=== PATIENT | female | born 1995 | race Caucasian/White ===

== ENCOUNTER 2016-10-09 14:30 | Inpatient (IN) | payer OTHER ==
[2016-10-09] MEDS ORDERED: DINOPROSTONE 10 MG VAGINAL SUPPOSITORY VG ONE (15:30)
[2016-10-09 15:54] VITALS: BMI 32.5
[2016-10-09 16:04] LABS: MCH 28.7 pg (25.7-33.7); MCHC 33.6 g/dl (32.0-36.0); MEAN CELL VOLUME 85.6 fl (80-96); MEAN PLT VOLUME 7.9 fl (7.5-11.1); PLATELET COUNT 259 K/MM3 (134-434); RDW 15.3 % (11.6-15.6); WHITE BLOOD COUNT 11.5 K/mm3 (4.0-10.0)
[2016-10-09 16:29] LABS: CALCIUM 9.1 mg/dL (8.5-10.1); COCKROFT - GAULT 174.335; CREATININE 0.6 mg/dL (0.55-1.02)
[2016-10-09 16:33] LABS: INR 0.98 (0.82-1.09); PROTHROMBIN TIME (PATIENT) 10.8 SEC (9.98-11.88)
--- NOTE | 2016-10-09 17:30 | HP ---
Past Medical History - Primary Care Physician PCP:: Yamil Anthony - Admission Chief Complaint: 40 weeks, for cervidil induction History of Present Illness: 21 yo f g 3 p0020, edc by date and sono 10/09/16 40 weeks, requesting induction because of discomfort, risks discussed , cx 1 cm 25 vx -2 mi, fhr cat 1, occasional irregular contraction History Source: Patient, Family Member, Significant Other Limitations to Obtaining History: Language Barrier - Past Medical History ...: 3 ...Para: 0 ...Spon : 1 ...Induced : 1 ...LMP: 01/03/16 ... Weeks Gestation by Dates: 40 ...EDC by Dates: 10/09/16 ...EDC by Sono: 10/09/16 - Past Surgical History Hx Myomectomy: No Hx Transabdominal Cerclage: No Additional Surgical History: right salpingectomy for RT tubal ectopic - Smoking History Smoking history: Never smoked Have you smoked in the past 12 months: No - Alcohol/Substance Use Hx Alcohol Use: No - Social History Usual Living Arrangement: Yes: With Spouse History of Recent Travel: No Home Medications - Allergies Allergies/Adverse Reactions: Allergies Allergy/AdvReac Type Severity Reaction Status Date / Time No Known Allergies Allergy Verified 02/26/16 11:52 - Home Medications Home Medications: Ambulatory Orders Pnv95/Ferrous Fumarate/FA [ Formula] 1 each PO DAILY 02/13/16 Ferrous Sulfate [Feosol] 325 mg PO DAILY 09/20/16 Review of Systems - Review of Systems Constitutional: reports: Malaise, Weakness Eyes: reports: No Symptoms HENT: reports: No Symptoms Neck: reports: No Symptoms Cardiovascular: reports: No Symptoms Respiratory: reports: No Symptoms Gastrointestinal: reports: Abdominal Pain Genitourinary: reports: Frequency Breasts: reports: No Symptoms Reported Musculoskeletal: reports: Back Pain, Joint Pain, Joint Swelling, Muscle Cramps, Muscle Weakness Integumentary: reports: No Symptoms Neurological: reports: No Symptoms Endocrine: reports: No Symptoms Hematology/Lymphatic: reports: No Symptoms Psychiatric: reports: No Symptoms Physical Exam - Maternity Vital Signs: Vital Signs Temperature 98 F 10/09/16 16:20 Pulse Rate 79 10/09/16 17:00 Respiratory Rate 20 10/09/16 17:00 Blood Pressure 142/70 10/09/16 17:00 O2 Sat by Pulse Oximetry (%) Constitutional: Yes: Well Nourished, No Distress, Calm Eyes: Yes: WNL, Conjunctiva Clear, EOM Intact HENT: Yes: WNL, Atraumatic, Normocephalic Neck: Yes: WNL, Supple, Trachea Midline Cardiovascular: Yes: WNL, Regular Rate and Rhythm Breast(s): Yes: WNL - Abdominal Exam/OB Fundal Height: 40 Number of Fetuses: Single Presentation: Vertex Contractions: Yes Regularity: Irregular Intensity: Unaware Monitor Mode: External Heart Rate Location: [facility] Category: I Accelerations: Uniform Decelerations: None - Vaginal Exam/OB Vaginal Bleediing: No Speculum Exam: No Dilatation (cm): 1 cm Effacement (%): 25 Amniotic Membrane Status: Intact Presentation: Vertex/Position Station: -2 - Physical Exam Musculoskeletal: Yes: WNL Extremities: Yes: WNL Edema: LLE: 1+, RLE: 1+ Deep Tendon Reflex Grade: Normal +2 - Labs Lab Results: CBC, BMP 10/09/16 15:40 10/09/16 15:40 Hemorrhage Risk Assessment - Risk Factors Medium Risk Factors: Yes: None Risk Score: 1 Risk Level: Medium Risk Problem List - Problems (1) 40 weeks gestation of Code(s): Z3A.40 - 40 WEEKS GESTATION OF Assessment/Plan requesting induction of labor for maternal reason, risks discussed. aware of all risks, for cervidil induction
--- NOTE | 2016-10-09 18:24 | PN ---
Progress Note (short form) - Note Progress Note: 510 pm cervidil inserted , , fhr cat 1 Problem List - Problems (1) 40 weeks gestation of Code(s): Z3A.40 - 40 WEEKS GESTATION OF
[2016-10-09 19:08] LABS: PLATELET ESTIMATE ADEQUATE (NORMAL)
[2016-10-09] MEDS ORDERED: BUTORPHANOL TARTRATE 1 MG/ML VIAL IVPUSH ONE (23:06)
[2016-10-09] MEDS ORDERED: DEXTROSE 5%-LACTATED RINGERS 1,000 ML IV SCH (23:15)
[2016-10-10 05:51] LABS: URIC ACID 2.8 mg/dL (2.6-7.2)
[2016-10-10] MEDS ORDERED: DEXTROSE 5%-LACTATED RINGERS 1,000 ML IV ONE (06:00)
[2016-10-10] MEDS ORDERED: BUTORPHANOL TARTRATE 1 MG/ML VIAL IVPUSH ONE (08:41)
--- NOTE | 2016-10-10 08:41 | PN ---
Progress Note (short form) - Note Progress Note: 730 am cx 2 cm 75 vx -2 mi , fhr cat 1, contravtion irregular , will start pitocin Problem List - Problems (1) 40 weeks gestation of Code(s): Z3A.40 - 40 WEEKS GESTATION OF
[2016-10-10] MEDS ORDERED: OXYTOCIN 15 UNITS/ LR 250 ML 250 ML IVPB SCH (08:45)
[2016-10-10] MEDS ORDERED: FERROUS SO4 325 MG TABLET (FP) PO SCH (10:00)
[2016-10-10] MEDS ORDERED: BUTORPHANOL TARTRATE 1 MG/ML VIAL IVPB ONE (12:20)
--- NOTE | 2016-10-10 14:20 | PN ---
Progress Note (short form) - Note Progress Note: cx 6 cm, 80 vx -1 membrane bulging, fhr cat 1, arom, clear . contraction regular Problem List - Problems (1) 40 weeks gestation of Code(s): Z3A.40 - 40 WEEKS GESTATION OF
[2016-10-10] MEDS ORDERED: ELECTROLYTE-148 SOLN 1,000 ML IV SCH (15:00)
[2016-10-10] MEDS ORDERED: FENTANYL/BUPIVACAINE/NS/PF - PCEA - 50 ML DISP.SYRIN EP SCH (18:30)
[2016-10-10 18:40] LABS: ARTERIAL BLD GAS O2 SATURATION 47.6 % (90-98.9); ARTERIAL BLOOD GAS BASE EXCESS -2.3 meq/l (-2-2); ARTERIAL BLOOD GAS HCO3 22.8 meq/L (22-26); ARTERIAL BLOOD GAS pH 7.35 (7.35-7.45)
[2016-10-10 18:43] LABS: LPM/O2% 21%; PT. ON O2? no
[2016-10-10 18:45] LABS: VENOUS BLOOD GAS HCO3 21.5 meq/L (19-25); VENOUS PH 7.39 (7.32-7.42)
[2016-10-10] MEDS ORDERED: BISACODYL 10 MG SUPP.RECT RC PRN (18:48)
[2016-10-10] MEDS ORDERED: BENZOCAINE 20% 57 GM BOTTLE TP PRN (18:48)
[2016-10-10] MEDS ORDERED: WITCH HAZEL 50% (TUCKS) 40 PAD/JAR PAD TP PRN (18:48)
[2016-10-10] MEDS ORDERED: METHYLERGONOVINE MALEATE 0.2 MG/1 ML AMP IM PRN (18:48)
[2016-10-10] MEDS ORDERED: BENZOCAINE 28 GM HEMORRHOIDAL OINTMENT TP PRN (18:48)
[2016-10-10] MEDS ORDERED: oxyCODONE HCL 5 MG TABLET PO PRN (18:48)
[2016-10-10] MEDS ORDERED: D5W-LR W/ 20 UNITS OXYTOCIN 1,000 ML IV SCH (19:00)
[2016-10-10] MEDS: PRENATAL VITAMINS W/ FOLIC ACID TABLET (FP) PO SCH (21:11)
[2016-10-10] MEDS: FERROUS SO4 325 MG TABLET (FP) PO SCH (22:19)
[2016-10-11] MEDS: ACETAMINOPHEN 325 MG TABLET (FP) PO PRN ×3 (04:53→21:34)
[2016-10-11] MEDS: IBUPROFEN 600 MG TABLET (FP) PO PRN ×3 (04:54→21:37)
[2016-10-11 07:57] LABS: BASOPHIL 0.1 % (0-2.0); EOSINOPHIL 0.6 % (0-4.5); MCH 28.7 pg (25.7-33.7); MCHC 33.3 g/dl (32.0-36.0); MEAN CELL VOLUME 86.4 fl (80-96); MEAN PLT VOLUME 7.4 fl (7.5-11.1); NEUTROPHILS 80.9 % (42.8-82.8); PLATELET COUNT 218 K/MM3 (134-434); RDW 15.3 % (11.6-15.6); WHITE BLOOD COUNT 19.2 K/mm3 (4.0-10.0)
[2016-10-11] MEDS: FERROUS SO4 325 MG TABLET (FP) PO SCH ×2 (09:27→21:33)
[2016-10-11] MEDS: PRENATAL VITAMINS W/ FOLIC ACID TABLET (FP) PO SCH (09:27)
[2016-10-11] MEDS ORDERED: PRENATAL VITAMINS W/ FOLIC ACID TABLET (FP) PO SCH (10:00)
--- NOTE | 2016-10-11 10:20 | PN ---
Progress Note (short form) - Note Progress Note: ppd 1 doing well, ambulating, voids ok CBC, BMP 10/11/16 06:00 10/09/16 15:40 Last Vital Signs Temp Pulse Resp BP Pulse Ox 98.4 F 80 20 124/59 100 10/11/16 07:30 10/11/16 07:30 10/11/16 07:30 10/11/16 07:30 10/10/16 19:15 abdomen soft, non tender, uterus firm, lochia mild no calf tenderness plan ambulate observr Problem List - Problems (1) 40 weeks gestation of Code(s): Z3A.40 - 40 WEEKS GESTATION OF
[2016-10-11] MEDS ORDERED: SENNOSIDES/DOCUSATE COMBO (SENNA PLUS) TABLET (UD) PO PRN (22:00)
[2016-10-12] MEDS: PRENATAL VITAMINS W/ FOLIC ACID TABLET (FP) PO SCH (09:25)
[2016-10-12] MEDS: FERROUS SO4 325 MG TABLET (FP) PO SCH (09:25)
[2016-10-12] MEDS: ACETAMINOPHEN 325 MG TABLET (FP) PO PRN (09:31)
[2016-10-12] MEDS: IBUPROFEN 600 MG TABLET (FP) PO PRN (09:31)
[2016-10-12 10:36] VITALS: BP 135/65; PULSE 81; TEMP 97.7
--- NOTE | 2016-10-12 11:18 | DS ---
Physical Exam-RN LIAISON Vital Signs: Vital Signs Temperature 97.7 F 10/12/16 10:00 Pulse Rate 81 10/12/16 10:00 Respiratory Rate 18 10/12/16 10:00 Blood Pressure 135/65 10/12/16 10:00 O2 Sat by Pulse Oximetry (%) 100 10/10/16 19:15 Constitutional: Yes: Well Nourished, No Distress, Calm Eyes: Yes: WNL, Conjunctiva Clear, EOM Intact HENT: Yes: WNL, Atraumatic, Normocephalic Neck: Yes: WNL, Supple, Trachea Midline Cardiovascular: Yes: WNL, Regular Rate and Rhythm Respiratory: Yes: WNL, Regular, CTA Bilaterally Gastrointestinal: Yes: WNL ...Rectal Exam: Yes: WNL Renal/: Yes: WNL ....Post : Yes: Uterus firm, Uterus non-tender, Slight lochia rubra Breast(s): Yes: WNL Musculoskeletal: Yes: WNL Extremities: Yes: WNL Edema: LLE: Trace, RLE: Trace Integumentary: Yes: WNL Neurological: Yes: WNL, Alert, Oriented ...Motor Strength: WNL Psychiatric: Yes: WNL, Alert, Oriented Labs: CBC, BMP 10/11/16 06:00 10/09/16 15:40 Delivery - Delivery Vaginal Delivery: Spontaneous (no complication) Type of Anesthesia: Local, Epidural Episiotomy/Laceration: Perineal Extension/lac, 1st degree EBL (cc): 300 Delivery, Single - Stages of Labor Date 1st Stage Initiatied: 10/10/16 Time 1st Stage Initiated: 06:00 Date 2nd Stage Initiated: 10/10/16 Time 2nd Stage Initiated: 17:45 Date of Delivery: 10/10/16 Time of Delivery: 17:58 Time Placenta Delivered: 18:00 Placenta: Yes: Spontaneous - Condition of Infant 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/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 Present: No Infant Gender: Female Weight: 6 lb 8 oz Position: OA Total Hours ROM (Hrs/Mins): 3H55M - 1 Minute Total Score: 9 5 Minutes Total Score: 10 - Feeding Plan Initial Plan: Exclusive throughout hospitalization Discharge Summary Reason For Visit: CERVIDIL INDUCTION Current Active Problems 40 weeks gestation of (Acute) Procedures: Principal: Condition: Good - Instructions Diet, Activity, Other Instructions: regular diet, follow up [facility] care 4 weeks Referrals: [facility] (Jaylyn Lofton) [Outside] Disposition: HOME - Home Medications Comprehensive Discharge Medication List: Ambulatory Orders Pnv95/Ferrous Fumarate/FA [ Formula] 1 each PO DAILY 02/13/16 Ferrous Sulfate [Feosol] 325 mg PO DAILY 09/20/16 Ibuprofen [Motrin -] 600 mg PO QID #28 tablet 10/11/16
== END 2016-10-12 11:30 | disposition home or self-care (01) | DRG 560 ==
LOC: JLDR 14:30 → J3W 10-10 20:35
PROVIDERS: ADMIT Obstetrics & Gynecology; ATTEND Obstetrics & Gynecology
PROC: 3E0P7GC Introduction of Other Therapeutic Substance into Female Reproductive, Via Natural or Artificial Opening (ICD-10-PCS; 2016-10-09)
PROC: 10E0XZZ Delivery of Products of Conception, External Approach (ICD-10-PCS; principal; 2016-10-10)
PROC: 0HQ9XZZ Repair Perineum Skin, External Approach (ICD-10-PCS; 2016-10-10)
PROC: 0W8NXZZ Division of Female Perineum, External Approach (ICD-10-PCS; 2016-10-10)
DX: O70.0 First degree perineal laceration during delivery (principal); Z3A.40 40 weeks gestation of pregnancy; Z37.0 Single live birth
CPT/HCPCS: 36415; 36600; 59409; 80048; 82803; 82977; 83010; 84450; 84460; 84550; 85025; 85044; 85610; 85730; 86593; 86850; 86900; 86901

== ENCOUNTER 2016-10-17 21:17 | Emergency (ER) | payer OTHER ==
[2016-10-17 21:26] VITALS: BP 149/71; PULSE 71; TEMP 98.9; BMI 28.3
[2016-10-17] MEDS ORDERED: SODIUM CHLORIDE 1,000 ML IV STA (22:15)
--- NOTE | 2016-10-17 22:15 | PDOC ---
History of Present Illness - General Chief Complaint: Vaginal Sxs Stated Complaint: INFECTED WOUND Time Seen by Provider: 10/17/16 21:34 History Source: Patient Exam Limitations: No Limitations - History of Present Illness Travel History: No Initial Comments: 10/17/16 22:30 21-year-old female without any past medical history presents to the emergency department complaining of bleeding from her right labia. Patient had normal spontaneous vaginal delivery times one week ago and caused a laceration to her right labia. Patient reports she had it repaired while in the delivery room with some sutures. Patient states after moving heavy furniture yesterday, she felt some pain to the right labia. Patient noticed some bleeding and swelling this evening but denies difficulty urinating, urinary hesitancy, frequency or urgency, abdominal pains, flank pains, nausea/vomiting, fever/chills. 2201hrs: Spoke to Dr. Nunez/OB-AIRBRUSH ARTIST TECHNICAL fabrication inspector, I advised patient to apply ice packs and be discharged on Augmentin 875 mg twice a day 5 days/follow-up with AIRBRUSH ARTIST TECHNICAL at [address] [place] [address]/clinic on Thursday (in 2 d). Timing/Duration: reports: intermittent Past History - Travel Traveled outside of the country in the last 30 days: No Close contact w/someone who was outside of country & ill: No - Past Medical History Allergies/Adverse Reactions: Allergies Allergy/AdvReac Type Severity Reaction Status Date / Time No Known Allergies Allergy Verified 02/26/16 11:52 Home Medications: Ambulatory Orders Pnv95/Ferrous Fumarate/FA [ Formula] 1 each PO DAILY 02/13/16 Ferrous Sulfate [Feosol] 325 mg PO DAILY 09/20/16 Ibuprofen [Motrin -] 600 mg PO QID #28 tablet 10/11/16 Asthma: No Cancer: No Cardiac Disorders: No Diabetes: No GI Disorders: Yes (gastritis) HTN: No Seizures: No Thyroid Disease: No - Reproductive History (#): 1 Para: 1 Therapeutic (s) & number: No Spontaneous : 2 - Psycho/Social/Smoking Cessation Hx Anxiety: No Suicidal Ideation: No Smoking History: Never smoked Have you smoked in the past 12 months: No Information on smoking cessation initiated: No Hx Alcohol Use: No Drug/Substance Use Hx: No Substance Use Type: None Hx Substance Use Treatment: No Review of Systems - Review of Systems Able to Perform ROS?: Yes Comments:: 10/17/16 22:33 CONSTITUTIONAL: Absent: fever, chills, diaphoresis, generalized weakness, malaise, loss of appetite HEENT: Absent: rhinorrhea, nasal congestion, throat pain, throat swelling, difficulty swallowing, mouth swelling, ear pain, eye pain, visual Changes CARDIOVASCULAR: Absent: chest pain, loss of consciousness, palpitations, irregular heart rate, peripheral edema RESPIRATORY: Absent: cough, shortness of breath, dyspnea with exertion, orthopnea, wheezing, stridor, hemoptysis GASTROINTESTINAL: Absent: abdominal pain, abdominal distension, nausea, vomiting, diarrhea, constipation, melena, hematochezia GENITOURINARY: Absent: dysuria, frequency, urgency, hesitancy, hematuria, flank pain, genital pain MUSCULOSKELETAL: Absent: myalgia, arthralgia, joint swelling SKIN: Absent: rash, itching, pallor HEMATOLOGIC/IMMUNOLOGIC: Absent: easy bleeding, easy bruising, lymphadenopathy, frequent infections ENDOCRINE: Absent: unexplained weight gain, unexplained weight loss, heat intolerance, cold intolerance NEUROLOGIC: Absent: headache, focal weakness or paresthesias, dizziness, unsteady gait, seizure, mental status changes, bladder or bowel incontinence PSYCHIATRIC: Absent: anxiety, depression, suicidal or homicidal ideation, hallucinations. right labia bleeding/pain *Physical Exam - Vital Signs Last Vital Signs Temp Pulse Resp BP Pulse Ox 98.9 F 71 20 149/71 100 10/17/16 21:21 10/17/16 21:21 10/17/16 21:21 10/17/16 21:21 10/17/16 21:21 - Physical Exam Comments: 10/17/16 22:41 GENERAL: Well developed, well nourished. Awake and alert. No acute distress. HEENT: Normocephalic, atraumatic. PERRLA, EOMI. No conjunctival pallor. Sclera are non- icteric. Moist mucous membranes. Oropharynx is clear. NECK: Supple. Full ROM. No JVD. Carotid pulses 2+ and symmetric, without bruits. No thyromegaly. No lymphadenopathy. CARDIOVASCULAR: Regular rate and rhythm. No murmurs, rubs, or gallops. Distal pulses are 2+ and symmetric. PULMONARY: No evidence of respiratory distress. Lungs clear to auscultation bilaterally. No wheezing, rales or rhonchi. ABDOMINAL: Soft. Non-tender. Non-distended. No rebound or guarding. No organomegaly. Normoactive bowel sounds. MUSCULOSKELETAL Normal range of motion at all joints. No bony deformities or tenderness. No CVA tenderness. EXTREMITIES: No cyanosis. No clubbing. No edema. No calf tenderness. SKIN: Warm and dry. Normal capillary refill. No rashes. No jaundice. Pelvic: Right labia; [id number] hematoma with healing 3cm vert lac /upper region/oozing blood +pain onpalp Vaginal vault is clear without blood or discharge. Cervix is long and closed. No cervical motion tenderness. Uterus is nontender and normal in size. Adnexa are nontender and without masses. *DC/Admit/Observation/Transfer Diagnosis at time of Disposition: Hematoma of labia majora Laceration of labia majora Qualifiers: Encounter type: subsequent encounter Qualified Code(s): S31.41XD - Laceration without foreign body of vagina and vulva, subsequent encounter - Discharge Dispostion Disposition: HOME Condition at time of disposition: Stable - Referrals Referrals: Ellie Frost MD [Primary Care Provider] - Sivan Nunez MD [Staff Physician] - - Patient Instructions Printed Discharge Instructions: DI for Hematoma (Bruise) Additional Instructions: Follow up at the clinic on Thursday / [place] I spoke to Dr. Nunez (AIRBRUSH ARTIST TECHNICAL fabrication inspector for our ER tonight); Her advice is happy apply ice pack to your vaginal bruising and follow-up at the clinic on Thursday. Take Tylenol as needed for pain. Return back to the emergency department for increase/persistent or worsening symptoms.
[2016-10-17] MEDS ORDERED: AMPICILLIN NA/SULBACTAM NA 1.5 GM in SODIUM CHLORIDE 100 ML IVPB ONE (22:18)
--- NOTE | 2016-10-17 22:22 | PDOC ---
[id number]/71 100 10/17/16 21:21 10/17/16 21:21 10/17/16 21:21 10/17/16 21:21 10/17/16 21:21 ED Treatment Course - LABORATORY CBC & Chemistry Diagram: 10/17/16 22:35 Medical Decision Making - Medical Decision Making 10/17/16 22:21 Pt seen by the Advanced Practice Provider under my direct supervision Ancillary studies reviewed I agree with plan as outlined by the Advanced Practice Provider ESCOBAR Quick *DC/Admit/Observation/Transfer Diagnosis at time of Disposition: Laceration of labia majora, Hematoma of labia majora - Discharge Dispostion Disposition: HOME Condition at time of disposition: Stable - Prescriptions Prescriptions: Amox-Tr/K Cl [Augmentin - 875Mg Tablet] 1 tab PO BID #14 tablet - Referrals Referrals: Sivan Nunez MD [Staff Physician] - Ellie Frost MD [Primary Care Provider] - - Patient Instructions Printed Discharge Instructions: DI for Hematoma (Bruise) Additional Instructions: Follow up at the clinic on Thursday / [place] I spoke to Dr. Nunez (ANIMAL CAREGIVER supervisor inspection and testing for our ER [facility]); Her advice is happy apply ice pack to your vaginal bruising and follow-up at the clinic on Thursday. Take Tylenol as needed for pain. Return back to the emergency department for increase/persistent or worsening symptoms.
[2016-10-17 22:59] LABS: MCH 28.7 pg (25.7-33.7); MCHC 33.7 g/dl (32.0-36.0); MEAN CELL VOLUME 85.2 fl (80-96); MEAN PLT VOLUME 6.9 fl (7.5-11.1); PLATELET COUNT 425 K/MM3 (134-434); RDW 15.3 % (11.6-15.6); WHITE BLOOD COUNT 11.2 K/mm3 (4.0-10.0)
[2016-10-18 00:09] LABS: PLATELET ESTIMATE ADEQUATE (NORMAL)
== END 2016-10-18 00:09 | disposition home or self-care (01) ==
LOC: JER 21:17
DX: O90.2 Hematoma of obstetric wound (principal); S31.41XD Laceration without foreign body of vagina and vulva, subsequent encounter; X50.9XXA Other and unspecified overexertion or strenuous movements or postures, initial encounter; Y93.E9 Activity, other interior property and clothing maintenance; Y92.038 Other place in apartment as the place of occurrence of the external cause
CPT/HCPCS: 36415; 85025; 96365; 99283-25

== ENCOUNTER 2017-10-15 09:49 | Emergency (ER) | payer OTHER ==
[2017-10-15 09:59] VITALS: BP 121/40; PULSE 73; TEMP 99.1; BMI 29.5
--- NOTE | 2017-10-15 10:55 | PDOC ---
History of Present Illness <Jefe Hatch - Last Filed: 10/15/17 13:06> - General History Source: Patient - History of Present Illness Initial Comments: 10/15/17 10:49 22F A2, 6 weeks , last menstrual period 09/03/17, presents to the ED complaining of suprapubic abdominal pain exacerbated with movement. She also endorses increase in urinary frequency and urgency. Found out she was with urine test at home 2 days ago. Denies dysuria, vaginal bleeding, spotting or discharge. 10/15/17 11:03 <JagChase - Last Filed: 10/15/17 14:25> - General Chief Complaint: Pain, Acute Stated Complaint: ABD PAIN (4 WKS ) Time Seen by Provider: 10/15/17 10:00 Past History <Jefe Hatch - Last Filed: 10/15/17 13:06> - Past Medical History Asthma: No Cancer: No Cardiac Disorders: No COPD: No Diabetes: No GI Disorders: Yes (gastritis) HTN: No Seizures: No Thyroid Disease: No - Reproductive History (#): 1 Para: 1 Therapeutic (s) & number: No Spontaneous : 2 - Immunization History Immunization Up to Date: Yes - Suicide/Smoking/Psychosocial Hx Smoking History: Never smoked Have you smoked in the past 12 months: No Information on smoking cessation initiated: No Hx Alcohol Use: No Drug/Substance Use Hx: No Substance Use Type: None Hx Substance Use Treatment: No <JagChase - Last Filed: 10/15/17 14:25> - Past Medical History Allergies/Adverse Reactions: Allergies Allergy/AdvReac Type Severity Reaction Status Date / Time No Known Allergies Allergy Verified 10/15/17 09:54 Home Medications: Ambulatory Orders Pnv No.95/Ferrous Fum/Folic AC [ Formula] 1 each PO DAILY 02/13/16 Ferrous Sulfate [Feosol] 325 mg PO DAILY 09/20/16 Amox-Tr/K Cl [Augmentin - 875Mg Tablet] 1 tab PO BID #14 tablet 10/17/16 Review of Systems - Review of Systems Able to Perform ROS?: Yes Is the patient limited Uzbek proficient: No Constitutional: No: Symptoms Reported HEENTM: No: Symptoms Reported Respiratory: No: Symptoms reported Cardiac (ROS): No: Symptoms Reported ABD/GI: Yes: See HPI. No: Vomiting, Indigestion : Yes: Frequency, Urgency. No: Burning, Dysuria, Discharge, Hematuria All Other Systems: Reviewed and Negative <Chase Rm - Last Filed: 10/15/17 14:25> *Physical Exam - Vital Signs Last Vital Signs Temp Pulse Resp BP Pulse Ox 99.1 F 73 16 121/40 99 10/15/17 09:55 10/15/17 09:55 10/15/17 09:55 10/15/17 09:55 10/15/17 09:55 <Jefe Hatch - Last Filed: 10/15/17 13:06> - Vital Signs Last Vital Signs Temp Pulse Resp BP Pulse Ox 99.1 F 73 16 121/40 99 10/15/17 09:55 10/15/17 09:55 10/15/17 09:55 10/15/17 09:55 10/15/17 09:55 - Physical Exam General Appearance: Yes: Nourished, Appropriately Dressed, Mild Distress HEENT: positive: EOMI, BERNARDINO, Normal ENT Inspection Respiratory/Chest: positive: Lungs Clear, Normal Breath Sounds. negative: Chest Tender, Respiratory Distress Cardiovascular: positive: Regular Rhythm, Regular Rate, S1, S2 Female Pelvic Exam: positive: normal external exam, cervical os closed, discharge (physiological leukorrhea ). negative: CMT, adnexal tenderness, vaginal bleeding Gastrointestinal/Abdominal: positive: Normal Bowel Sounds, Tender (epigastric pain with guarding but some tenderness as well on LLQ and LRQ), Flat, Soft, Guarding Musculoskeletal: positive: Normal Inspection. negative: CVA Tenderness, CVA Tenderness (R), CVA Tenderness (L) Integumentary: positive: Normal Color, Dry, Warm Neurologic: positive: Fully Oriented, Alert, Normal Mood/Affect, Normal Response <Chase Rm - Last Filed: 10/15/17 14:25> Heart Score/ECG Review - ECG Impressions Comment:: 10/15/17 13:06 22 years old approximately 6 weeks presents to the ED with suprapubic abdominal discomfort. Patient states she had similar pain during her last No fever no vomiting Gestational sac which correlates with hCG patient still with some suprapubic discomfort We'll discussed with PRODUCTION CORRUGATOR given no fever no white count no right lower quadrant pain lower suspicion for appendicitis <Jefe Hatch - Last Filed: 10/15/17 13:06> ED Treatment Course - LABORATORY CBC & Chemistry Diagram: 10/15/17 11:11 10/15/17 11:11 - ADDITIONAL ORDERS Additional order review: Laboratory Results 10/15/17 10/15/17 10/15/17 11:11 11:11 11:11 Sodium 140 Cancelled Potassium 3.8 Cancelled Chloride 110 H Cancelled Carbon Dioxide 24 Cancelled Anion Gap 6 L Cancelled BUN 9 Cancelled Creatinine 0.5 L Cancelled Creat Clearance w eGFR > 60 Cancelled Random Glucose 85 Cancelled Calcium 8.4 L Cancelled Total Bilirubin 0.1 L D Cancelled AST 21 Cancelled ALT 47 Cancelled Alkaline Phosphatase 69 Cancelled Total Protein 7.2 Cancelled Albumin 3.6 Cancelled Beta HCG, Quant 2874.5 Urine Color Urine Appearance Urine pH Ur Specific Parker Urine Protein Urine Glucose (UA) Urine Ketones Urine Blood Urine Nitrite Urine Bilirubin Urine Urobilinogen Ur Leukocyte Esterase Urine WBC (Auto) Urine RBC (Auto) Ur Epithelial Cells Urine Mucus Urine HCG, Qual Positive 10/15/17 11:11 Sodium Potassium Chloride Carbon Dioxide Anion Gap BUN Creatinine Creat Clearance w eGFR Random Glucose Calcium Total Bilirubin AST ALT Alkaline Phosphatase Total Protein Albumin Beta HCG, Quant Urine Color Straw Urine Appearance Clear Urine pH 7.0 Ur Specific Parker 1.005 Urine Protein Negative Urine Glucose (UA) Negative Urine Ketones Negative Urine Blood Negative Urine Nitrite Negative Urine Bilirubin Negative Urine Urobilinogen Negative Ur Leukocyte Esterase Trace Urine WBC (Auto) <1 Urine RBC (Auto) <1 Ur Epithelial Cells Rare Urine Mucus Rare Urine HCG, Qual 10/15/17 11:11 RBC 5.08 D MCV 70.3 L MCHC 32.7 RDW 18.8 H D MPV 7.0 L Neutrophils % 65.8 Lymphocytes % 25.4 Monocytes % 6.3 Eosinophils % 2.0 Basophils % 0.5 D <Jefe Hatch - Last Filed: 10/15/17 13:06> - LABORATORY CBC & Chemistry Diagram: 10/15/17 11:11 10/15/17 11:11 - RADIOLOGY Radiology Studies Ordered: Category Date Time Status <14WKS US [US] Stat Ultrasound 10/15/17 10:36 Ordered <Chase Rm - Last Filed: 10/15/17 14:25> Medical Decision Making - Medical Decision Making 10/15/17 11:16 22F, 6 week presents with suprapubic abdominal pain, urgency and frequency for one week, worst the past 2 days, UTI vs PID vs ovarian abcess vs ectopic UTI likely due to presentation even though no dysuria reported, Pain is concentrated midline but patient is tender bilaterally as well which makes ovarian torsion, abscess or ectopic less likely. Will confirm intrauterine with TVUS and betahcg. Low grade fever also makes infectious etiology more likely. Will look for wbc count in CBC as well as UA and U culture and treat accordingly. Spoke to Dr. Anthony on the phone who recommended patient follows up at clinic this week with Tylenol for pain. 10/15/17 14:20 Reassessed patient who refused Tylenol IV and endorses feeling much better, asking to be discharged to picking belt operator daughter. Repeated abdominal exam with was positive for only mild suprapubic pain. Patient told to set up appointment with OBGYN Dr. Anthony as soon as discharged for this week and take tylenol for pain. <Chase Rm - Last Filed: 10/15/17 14:25> *DC/Admit/Observation/Transfer <Jefe Hatch - Last Filed: 10/15/17 13:06> - Discharge Dispostion Admit: No <Chase Rm - Last Filed: 10/15/17 14:25> Diagnosis at time of Disposition: Abdominal pain - Discharge Dispostion Disposition: HOME Condition at time of disposition: Improved - Referrals Referrals: Yamil Anthony MD [Primary Care Provider] - - Patient Instructions Printed Discharge Instructions: DI for Abdominal Pain -- Early Additional Instructions: Take Tylenol for pain and set appointment with your OBGYN Dr. Anthony within 2- 3 days. Come back to the ED for any new, worsening or concerning symptom. Print Language: GIBRALTARIAN - Post Discharge Activity
[2017-10-15 11:19] LABS: BASO % 0.5 % (0-2.0); HEMATOCRIT 35.7 % (32.4-45.2); HEMOGLOBIN 11.7 GM/dL (10.7-15.3); LYMPH % 25.4 % (8-40); MCHC 32.7 g/dl (32.0-36.0); MEAN CELL VOLUME 70.3 fl (80-96); MONO % 6.3 % (3.8-10.2); NEUT % 65.8 % (42.8-82.8); PLATELET COUNT 393 K/MM3 (134-434); RBC 5.08 M/mm3 (3.60-5.2); RDW 18.8 % (11.6-15.6); WHITE BLOOD COUNT 10.2 K/mm3 (4.0-10.0)
[2017-10-15 11:22] LABS: URINE APPEARANCE CLEAR; URINE BILIRUBIN NEGATIVE (<2.0 mg/dL); URINE BLOOD NEGATIVE (NEGATIVE); URINE COLOR STRAW; URINE GLUCOSE (UA) NEGATIVE (NEGATIVE); URINE KETONE NEGATIVE (NEGATIVE); URINE LEUK ESTERASE TRACE (NEGATIVE); URINE NITRITE NEGATIVE (NEGATIVE); URINE PROTEIN NEGATIVE (NEGATIVE); URINE UROBILINOGEN NEGATIVE mg/dL (0.2-1.0)
[2017-10-15 11:31] LABS: EPI CELLS RARE /HPF (FEW); URINE MUCUS RARE
[2017-10-15 11:50] LABS: ALBUMIN 3.6 g/dl (3.4-5.0); ANION GAP 6 (8-16); BILIRUBIN,TOTAL 0.1 mg/dL (0.2-1.0); BLOOD UREA NITROGEN 9 mg/dL (7-18); CALCIUM 8.4 mg/dL (8.5-10.1); CHLORIDE 110 mmol/L (98-107); CO2 24 mmol/L (21-32); CREATININE 0.5 mg/dL (0.55-1.02); GLUCOSE,RANDOM 85 mg/dL (74-106); POTASSIUM 3.8 mmol/L (3.5-5.1); SGOT/AST 21 U/L (15-37); SGPT/ALT 47 U/L (12-78); SODIUM 140 mmol/L (136-145); TOT PROT 7.2 g/dl (6.4-8.2)
[2017-10-15 12:05] LABS: ALK PHOS 69 U/L (45-117)
[2017-10-15] MEDS ORDERED: ACETAMINOPHEN 1000 MG/100 ML VIAL (NON FORMULARY) IVPB ONE (13:23)
[2017-10-15] MEDS ORDERED: ACETAMINOPHEN INJECTION 100 ML IVPB ONE (13:48)
--- NOTE | 2017-10-15 14:07 | PDOC ---
Attending Attestation - HPI HPI: 10/15/17 14:09 The patient is a 6 weeks 22 year old female , with no significant PMH, who presents to the emergency department with suprapubic pain. The patient states the suprapubic pain is worsened with movement. The patient reports she learned she was 2 days ago via urine test at home. She denies any recent vaginal bleeding, spotting or discharge. Patient reports her LMP was . The patient denies chest pain, shortness of breath, headache and dizziness. Denies fever, chills, nausea, vomit, diarrhea and constipation. Denies dysuria, frequency, urgency and hematuria. Allergies: NKA Documentation prepared by Dylan Cueva, acting as medical translator for Jefe Hatch MD - Physicial Exam PE: 10/15/17 14:10 Vitals: Triage vital signs reviewed General Appearance: No acute distress, well nourished, well developed Head: Atraumatic Eyes: Pupils equal reactive round, extraocular movement intact Ears: TM's normal bilaterally Nose: Nares patent bilaterally; no nasal congestion Throat: Posterior oropharynx without erythema, mucous membranes moist Neck: Supple; No nuchal rigidity Chest Wall: Nontender Cardiac: Regular rate and rhythm, no murmurs, no rubs, no gallops Lungs: Clear to auscultation bilateral, good air movement bilaterally Abdomen: +Surapubic tenderness on palpation. Soft, nondistended, normal bowel sounds. Rectal: Exam deferred Extremities: Full range of motion to all extremities, no cyanosis, clubbing, or edema Skin: Warm and dry, no rashes or lesions, no rash, no petechiae Neuro: AOX3; Cranial Nerves 2-12 grossly intact, Strength intact to all extremities, Sensation intact to all extremities, gait normal Psych: Normal mood, normal affect - Medical Decision Making 10/15/17 14:10 The patient is a 6 weeks 22 year old female , with no significant PMH, who presents to the emergency department with suprapubic pain. Plan: Labs, ultrasound <Dylan Cueva - Last Filed: 10/15/17 14:09> - Resident Resident Name: Chase Rm - ED Attending Attestation I have performed the following: I have examined & evaluated the patient, The case was reviewed & discussed with the resident, I agree w/resident's findings & plan, Exceptions are as noted - Medical Decision Making Reevaluation after IV fluids and Tylenol patient no longer with any significant abdominal discomfort. No rebound no guarding no right lower quadrant pain. 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 She'll return to ED for any fever vomiting severe persistent returning abdominal pain or bleeding. Otherwise she will follow-up with her [employer] OF HEARING TEACHER tomorrow Findings, the need for follow-up and strict return instructions discussed with patient. <Jefe Hatch - Last Filed: 10/15/17 16:32>
== END 2017-10-15 14:45 | disposition home or self-care (01) ==
LOC: JER 09:49
PROC: 3E033NZ Introduction of Analgesics, Hypnotics, Sedatives into Peripheral Vein, Percutaneous Approach (ICD-10-PCS; principal; 2017-10-15)
DX: O26.891 Other specified pregnancy related conditions, first trimester (principal); R10.30 Lower abdominal pain, unspecified; Z3A.01 Less than 8 weeks gestation of pregnancy
CPT/HCPCS: 36415; 76801-TC; 80053; 81003; 81015; 84702; 84703; 85025; 87086; 99282-25

== ENCOUNTER 2018-06-21 11:35 | Inpatient (IN) | payer OTHER ==
[2018-06-21] MEDS ORDERED: ELECTROLYTE-148 SOLN 1,000 ML IV SCH (13:30)
[2018-06-21 13:41] LABS: BASO % 0.2 % (0-2.0); EOS % 0.4 % (0-4.5); HEMATOCRIT 42.1 % (32.4-45.2); HEMOGLOBIN 13.5 GM/dL (10.7-15.3); LYMPH % 21.8 % (8-40); MCH 26.4 pg (25.7-33.7); MCHC 32.1 g/dl (32.0-36.0); MEAN CELL VOLUME 82.2 fl (80-96); MEAN PLT VOLUME 7.7 fl (7.5-11.1); MONO % 6.2 % (3.8-10.2); NEUT % 71.4 % (42.8-82.8); PLATELET COUNT 241 K/MM3 (134-434); RBC 5.12 M/mm3 (3.60-5.2); RDW 15.6 % (11.6-15.6); WHITE BLOOD COUNT 13.5 K/mm3 (4.0-10.0)
[2018-06-21 13:55] LABS: INR 0.96 (0.83-1.09); PROTHROMBIN TIME (PATIENT) 11.3 SEC (9.7-13.0)
[2018-06-21 13:57] VITALS: BMI 32.5
[2018-06-21 13:57] LABS: ACTIVATED PTT 29.4 SECONDS (25.2-36.5)
[2018-06-21] MEDS ORDERED: FENTANYL/BUPIVACAINE/NS/PF - PCEA - 50 ML DISP.SYRIN EP ONE (14:01)
[2018-06-21] MEDS ORDERED: OXYTOCIN 20 UNITS in 0.9% NS 20 UNIT/1,000 ML INFUS.BAG IV ONE ×2 (14:02→19:22)
[2018-06-21 14:08] LABS: ANION GAP 10 MMOL/L (8-16); BLOOD UREA NITROGEN 11 mg/dL (7-18); CALCIUM 9.2 mg/dL (8.5-10.1); CHLORIDE 107 mmol/L (98-107); CO2 20 mmol/L (21-32); CREATININE 0.6 mg/dL (0.55-1.3); GLUCOSE,RANDOM 79 mg/dL (74-106); POTASSIUM 3.5 mmol/L (3.5-5.1); SODIUM 138 mmol/L (136-145)
[2018-06-21] MEDS ORDERED: BUPIVACAINE HCL/PF 0.25% (2.5MG/ML) 10 ML VIAL ONE (14:11)
--- NOTE | 2018-06-21 15:32 | HP ---
Past Medical History - Admission Chief Complaint: Uterine contractions History of Present Illness: 22yo @ 40.1 wks here with uterine contractions, she says q 10-12 mins since 7AM. No VB/LOF. 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: No: Alzheimer's, CVA, Dementia, Migraine, Multiple Sclerosis, Peripheral Neuropathy, Parkinson's, Seizure, Syncope, TIA, Vertigo, Other Cardiovascular: No: AFIB, Aneurysm, Aortic Insufficiency, Aortic Stenosis, CAD, CHF, Deep Vein Thrombosis, HTN, Hyperlipdemia, HI, Mitral Insufficiency, Mitral Stenosis, Murmur, Pulmonary Hypertension, Other Pulmonary: No: Asthma, Bronchitis, Cancer, COPD, O2 Dependent, Pneumonia, Previously Intubated, Pulmonary Embolus, Pulmonary Fibrosis, Sleep Apnea, Other Gastrointestinal: No: Ascites, Cancer, Constipation, Crohn's Disease, Diverticulitis, Diverticulosis, Esophageal Varices, Gastritis, GERD, GI Bleed, Hemorrhoids, Hiatal Hernia, Inflamatory Bowel Disease, Irritable Bowel Disease, Pancreatitis, Peptic Ulcer Disease, Ulcerative Colitis, Other Hepatobiliary: No: Cirrhosis, Cholelithiasis, Cholecystitis, Choledocholithiasis , Hepatitis A, Hepatitis B, Hepatitis C, Other Renal/: No: Renal Failure, Renal Inusuff, BPH, Cancer, Hematuria, Hemodialysis , Neurogenic Bladder, Renal Calculi, UTI, Other ...: 4 ...Para: 1 ...Term: 1 ...: 0 ...Spon : 2 ...Induced : 0 ...Multiple Gestation: 0 ...LMP: 09/03/17 ... Weeks Gestation by Dates: 41.4 ...EDC by Dates: 06/10/18 ...EDC by Sono: 06/20/18 - Past Surgical History Past Surgical History: No: None, AAA Repair, AICD, Amputation, Appendectomy, Arthrosocopy, Bariatric Surgery, Breast Biopsy, Bypass, CABG, Carotid Endarterectomy, Cataract Removal, Cholecystectomy, Colectomy, Colonoscopy, Colostomy, Craniotomy, , Cystectomy, Hernia Repair, Hysterectomy, Ileal Conduit, Ileosotomy, Joint Replacement, Kidney Transplant, Laminectomy, Liver Transplant, Mastectomy, Nephrectomy, Oopherectomy, Orchiectomy, Permanent Pacemaker, Prostatectomy, Splenectomy, Stent, Thoracotomy, TURP, Tonsillectomy, Tubal Ligation, Upper Endoscopy, Valve Replacement, Vasectomy, Vein Stripping/ Ligation Hx Myomectomy: No Hx Transabdominal Cerclage: No - Smoking History Smoking history: Never smoked Have you smoked in the past 12 months: No - Alcohol/Substance Use Hx Alcohol Use: No History of Substance Use: reports: None - Social History Usual Living Arrangement: Yes: With Spouse History of Recent Travel: No Home Medications - Allergies Allergies/Adverse Reactions: Allergies Allergy/AdvReac Type Severity Reaction Status Date / Time No Known Allergies Allergy Verified 06/21/18 13:38 - Home Medications Home Medications: Ambulatory Orders Pnv No.95/Ferrous Fum/Folic AC [ Formula] 1 each PO DAILY 02/13/16 Physical Exam - Maternity Vital Signs: Vital Signs Temperature 98.0 F 06/21/18 13:05 Pulse Rate 65 06/21/18 13:05 Respiratory Rate 18 06/21/18 13:05 Blood Pressure 126/74 06/21/18 13:05 O2 Sat by Pulse Oximetry (%) Constitutional: Yes: Well Nourished, No Distress, Calm Eyes: Yes: WNL, Conjunctiva Clear, EOM Intact HENT: Yes: WNL, Atraumatic, Normocephalic Neck: Yes: WNL, Supple, Trachea Midline Cardiovascular: Yes: WNL, Regular Rate and Rhythm Breast(s): Yes: WNL - Abdominal Exam/OB Number of Fetuses: Single Presentation: Vertex Contractions: Yes Regularity: Regular Intensity: Unaware Monitor Mode: External Heart Rate Location: [facility] Category: I Accelerations: Uniform Decelerations: None - Vaginal Exam/OB Vaginal Bleediing: No Dilatation (cm): 5 Effacement (%): 75 Amniotic Membrane Status: Intact Presentation: Vertex/Position Station: -3 - Physical Exam Edema: No - Labs Lab Results: CBC, BMP 06/21/18 13:23 06/21/18 13:23 Assessment/Plan 22yo @ 40.1wks here in labor. Initially 3cm upon presentation, progressed to 5cm after 90 minutes. Admit to L&D Cat I tracing Epidural as needed Anticipate LAUREN Vargas MD
--- NOTE | 2018-06-21 15:33 | PN ---
Progress Note, Labor Vaginal Exam #1 Labor Exam Date: 06/21/18 Labor Exam Time: 15:32 Heart Rate (range): Cat I Dilatation: 7 Effacement (%): 100 Amniotic Membrane Status: Ruptured Presentation: Vertex/Position Station: -2 Remarks: AROM, scant clears Anticipate Drew Varags MD
--- NOTE | 2018-06-21 16:20 | PN ---
Progress Note, Labor Vaginal Exam #2 Labor Exam Date: 06/21/18 Labor Exam Time: 16:19 Heart Rate (range): Cat 1 Dilatation: 8 Effacement (%): 100 Amniotic Membrane Status: Bulging Station: -1 Remarks: Feeling intermittent vaginal pressure Anticipate Drew Vargas MD
[2018-06-21] MEDS ORDERED: BENZOCAINE 28 GM HEMORRHOIDAL OINTMENT TP PRN (17:16)
[2018-06-21] MEDS ORDERED: WITCH HAZEL 50% (TUCKS) 40 PAD/JAR PAD TP PRN (17:16)
[2018-06-21] MEDS ORDERED: BENZOCAINE 20% 57 GM BOTTLE TP PRN (17:16)
[2018-06-21] MEDS ORDERED: METHYLERGONOVINE MALEATE 0.2 MG/1 ML AMP IM PRN (17:16)
--- NOTE | 2018-06-21 17:16 | PN ---
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 Body cord, delivered through. 40week gestation. Spontaneous delivery of anterior shoulder. Cord clamped and cut after 2 minutes. Infant handed off to nursing staff. Apgars 9/9. Weight pending to allow sufficient skin to skin contact. Spontaneous delivery of intact placenta with 3VC. Perineum inspected, no lacerations. Fundus firm. EBL 350ml. Mother and baby doing well. Tala Vargas MD
[2018-06-21] MEDS: FERROUS SO4 325 MG TABLET (FP) PO SCH (18:06)
[2018-06-21] MEDS ORDERED: IBUPROFEN 600 MG TABLET (FP) PO ONE (18:09)
[2018-06-21] MEDS ORDERED: ACETAMINOPHEN 325 MG TABLET (FP) ONE (18:09)
[2018-06-21] MEDS: IBUPROFEN 600 MG TABLET (FP) PO PRN ×2 (18:10→23:38)
[2018-06-21] MEDS: ACETAMINOPHEN 325 MG TABLET (FP) PO PRN ×2 (18:10→23:39)
[2018-06-21] MEDS ORDERED: OXYTOCIN 20 UNITS in 0.9% NS 20 UNIT/1,000 ML INFUS.BAG IV SCH (18:30)
[2018-06-22 07:25] LABS: BASO % 0.3 % (0-2.0); EOS % 0.7 % (0-4.5); HEMATOCRIT 36.8 % (32.4-45.2); HEMOGLOBIN 11.8 GM/dL (10.7-15.3); LYMPH % 16.8 % (8-40); MCH 26.6 pg (25.7-33.7); MEAN PLT VOLUME 7.7 fl (7.5-11.1); MONO % 6.1 % (3.8-10.2); NEUT % 76.1 % (42.8-82.8); PLATELET COUNT 215 K/MM3 (134-434); RBC 4.44 M/mm3 (3.60-5.2); RDW 15.9 % (11.6-15.6); WHITE BLOOD COUNT 13.9 K/mm3 (4.0-10.0)
[2018-06-22] MEDS: FERROUS SO4 325 MG TABLET (FP) PO SCH ×3 (08:21→17:03)
[2018-06-22] MEDS: ACETAMINOPHEN 325 MG TABLET (FP) PO PRN ×3 (08:23→23:20)
[2018-06-22] MEDS: IBUPROFEN 600 MG TABLET (FP) PO PRN ×3 (08:24→23:19)
[2018-06-22] MEDS: PRENATAL VITAMINS W/ FOLIC ACID TABLET (FP) PO SCH (09:15)
--- NOTE | 2018-06-22 10:28 | PN ---
Post Progress Note - Subjective Subjective: 22 yo Para 2 status post vaginal delivery, seen and evaluated. Doing well. Post Day: 1 Type of Delivery: Vital Signs: Vital Signs Temperature 98.3 F 06/22/18 09:00 Pulse Rate 73 06/22/18 09:00 Respiratory Rate 20 06/22/18 09:00 Blood Pressure 121/67 06/22/18 09:00 O2 Sat by Pulse Oximetry (%) 100 06/21/18 18:00 Breast Exam: Yes: Soft Uterus: Yes: Fundus Firm Abdomen/GI: Yes: Abdomen soft, Tolerating PO Lochia: Yes: Rubra Lochia, amount: Moderate Extremities: Yes: Calves non-tender Activity: Ambulating - Labs Labs: CBC WBC 13.9 K/mm3 (4.0-10.0) H 06/22/18 06:45 RBC 4.44 M/mm3 (3.60-5.2) 06/22/18 06:45 Hgb 11.8 GM/dL (10.7-15.3) 06/22/18 06:45 Hct 36.8 % (32.4-45.2) 06/22/18 06:45 MCV 83.0 fl (80-96) 06/22/18 06:45 MCH 26.6 pg (25.7-33.7) 06/22/18 06:45 MCHC 32.0 g/dl (32.0-36.0) 06/22/18 06:45 RDW 15.9 % (11.6-15.6) H 06/22/18 06:45 Plt Count 215 K/MM3 (134-434) 06/22/18 06:45 MPV 7.7 fl (7.5-11.1) 06/22/18 06:45 Absolute Neuts (auto) 10.6 K/mm3 (1.5-8.0) H 06/22/18 06:45 Neutrophils % 76.1 % (42.8-82.8) 06/22/18 06:45 Lymphocytes % 16.8 % (8-40) D 06/22/18 06:45 Monocytes % 6.1 % (3.8-10.2) 06/22/18 06:45 Eosinophils % 0.7 % (0-4.5) 06/22/18 06:45 Basophils % 0.3 % (0-2.0) 06/22/18 06:45 Nucleated RBC % 0 % (0-0) 06/22/18 06:45 Problem List - Problems (1) Status post normal vaginal delivery Code(s): [id number] - Assessment/Plan Status post vaginal delivery Stable Continue routine care
[2018-06-22] MEDS ORDERED: SENNOSIDES/DOCUSATE COMBO (SENNA PLUS) TABLET (UD) PO PRN (22:00)
[2018-06-23 07:54] VITALS: BP 128/76; PULSE 51; TEMP 98
[2018-06-23] MEDS: PRENATAL VITAMINS W/ FOLIC ACID TABLET (FP) PO SCH (09:00)
[2018-06-23] MEDS: FERROUS SO4 325 MG TABLET (FP) PO SCH ×2 (09:00→12:29)
--- NOTE | 2018-06-23 09:04 | PN ---
Post Progress Note - Subjective Subjective: no complains Post Day: 2 Type of Delivery: Vital Signs: Vital Signs Temperature 98 F 06/23/18 07:50 Pulse Rate 51 L 06/23/18 07:50 Respiratory Rate 18 06/23/18 07:50 Blood Pressure 128/76 06/23/18 07:50 O2 Sat by Pulse Oximetry (%) 100 06/21/18 18:00 Breast Exam: Yes: Soft, Other (BF & bottle feeding ). No: Engorged Uterus: Yes: Fundus Firm, Fundus below umbilicus, Non-tender Lochia: Yes: Rubra Lochia, amount: Moderate Extremities: Yes: Calves non-tender Perineum: Yes: Intact Activity: Ambulating - Labs Labs: CBC WBC 13.9 K/mm3 (4.0-10.0) H 06/22/18 06:45 RBC 4.44 M/mm3 (3.60-5.2) 06/22/18 06:45 Hgb 11.8 GM/dL (10.7-15.3) 06/22/18 06:45 Hct 36.8 % (32.4-45.2) 06/22/18 06:45 MCV 83.0 fl (80-96) 06/22/18 06:45 MCH 26.6 pg (25.7-33.7) 06/22/18 06:45 MCHC 32.0 g/dl (32.0-36.0) 06/22/18 06:45 RDW 15.9 % (11.6-15.6) H 06/22/18 06:45 Plt Count 215 K/MM3 (134-434) 06/22/18 06:45 MPV 7.7 fl (7.5-11.1) 06/22/18 06:45 Absolute Neuts (auto) 10.6 K/mm3 (1.5-8.0) H 06/22/18 06:45 Neutrophils % 76.1 % (42.8-82.8) 06/22/18 06:45 Lymphocytes % 16.8 % (8-40) D 06/22/18 06:45 Monocytes % 6.1 % (3.8-10.2) 06/22/18 06:45 Eosinophils % 0.7 % (0-4.5) 06/22/18 06:45 Basophils % 0.3 % (0-2.0) 06/22/18 06:45 Nucleated RBC % 0 % (0-0) 06/22/18 06:45 Problem List - Problems (1) Status post normal vaginal delivery Code(s): FCN1777 - (2) Encounter for care after hospital delivery Code(s): Z39.2 - ENCOUNTER FOR ROUTINE FOLLOW-UP Assessment/Plan stable. plan discharge today
[2018-06-23] MEDS: ACETAMINOPHEN 325 MG TABLET (FP) PO PRN (12:30)
[2018-06-23] MEDS: IBUPROFEN 600 MG TABLET (FP) PO PRN (12:31)
== END 2018-06-23 13:30 | disposition home or self-care (01) | DRG 560 ==
LOC: JDEL 11:35 → JLDR 13:05 → J3W 19:48
PROVIDERS: ADMIT Obstetrics & Gynecology; ATTEND Obstetrics & Gynecology
PROC: 10E0XZZ Delivery of Products of Conception, External Approach (ICD-10-PCS; principal; 2018-06-21)
DX: O80 Encounter for full-term uncomplicated delivery (principal); Z3A.40 40 weeks gestation of pregnancy; Z37.0 Single live birth
CPT/HCPCS: 36415; 59409; 80048; 85025; 85610; 85730; 86593; 86850; 86900; 86901

== ENCOUNTER 2022-05-22 10:02 | Emergency (ER) | payer OTHER ==
[2022-05-22 10:15] VITALS: BP 124/66; PULSE 62; RESP 18; BMI 26.4
[2022-05-22] MEDS ORDERED: ACETAMINOPHEN 1000 MG/100 ML BAG IVPB ONE (11:09)
[2022-05-22] MEDS ORDERED: ACETAMINOPHEN INJECTION 100 ML IVPB ONE (11:19)
[2022-05-22 12:07] LABS: BASO % 0.6 % (0-2.0); EOS % 0.9 % (0-4.5); HEMATOCRIT 33.3 % (32.4-45.2); LYMPH % 36.6 % (8-40); MCHC 29.9 g/dl (32.0-36.0); MEAN CELL VOLUME 58.7 fl (80-96); MEAN PLT VOLUME 8.7 fl (7.5-11.1); MONO % 6.3 % (3.8-10.2); NEUT % 55.6 % (42.8-82.8); PLATELET COUNT 437 10^3/uL (134-434); RBC 5.68 M/mm3 (3.60-5.2); RDW 19.4 % (11.6-15.6); WHITE BLOOD COUNT 6.9 K/mm3 (4.0-10.0)
[2022-05-22 12:08] LABS: MCH 17.6 pg (25.7-33.7)
[2022-05-22 12:14] LABS: EPI CELLS >36 /uL (0-25.1); HCG,QUALITATIVE URINE Negative; HYALINE CASTS 0 /uL (0-3.1); PH,URINE 7.5 (5.0-8.0); URINE APPEARANCE CLEAR; URINE BACTERIA 361 /uL (0-1359); URINE BILIRUBIN NEGATIVE (NEGATIVE); URINE COLOR YELLOW; URINE GLUCOSE (UA) NEGATIVE (NEGATIVE); URINE KETONE 1+ (NEGATIVE); URINE LEUK ESTERASE TRACE (NEGATIVE); URINE NITRITE NEGATIVE (NEGATIVE); URINE PROTEIN NEGATIVE (NEGATIVE); URINE RBC 15 /uL (0-23.9); URINE UROBILINOGEN 0.2 mg/dL (0.2-1.0); URINE WBC 16 /uL (0-25.8)
[2022-05-22 12:34] LABS: ANISOCYTOSIS 3+; MACROCYTOSIS 0; TEAR DROP CELLS 1+
[2022-05-22 12:35] LABS: CALCIUM 9.4 mg/dL (8.5-10.1)
[2022-05-22 12:36] LABS: ALBUMIN 4.2 g/dl (3.4-5.0); BLOOD UREA NITROGEN 6.4 mg/dL (7-18)
[2022-05-22 12:39] LABS: CREATININE 0.6 mg/dL (0.55-1.3)
[2022-05-22 12:41] LABS: BILIRUBIN,TOTAL 0.6 mg/dL (0.2-1); TOT PROT 7.8 g/dl (6.4-8.2)
[2022-05-22 12:56] LABS: ACTIVATED PTT 38.1 SECONDS (25.2-36.5); INR 1.12 (0.83-1.09); PROTHROMBIN TIME (PATIENT) 12.9 SEC (9.7-13.0)
== END 2022-05-22 18:21 | disposition home or self-care (01) ==
LOC: JER 10:02
PROC: 3E033GC Introduction of Other Therapeutic Substance into Peripheral Vein, Percutaneous Approach (ICD-10-PCS; principal; 2022-05-22)
DX: N83.201 Unspecified ovarian cyst, right side (principal); U07.1 COVID-19
CPT/HCPCS: 0241U-QW; 36415; 74177-TC; 80053; 81003; 84703; 85025; 85610; 85730; 86850; 86900; 86901; 87086; 99285-25; Q9967

== ENCOUNTER 2023-03-18 22:37 | Emergency (ER) | payer OTHER ==
[2023-03-18 22:40] VITALS: BMI 26.4
[2023-03-18 23:41] LABS: EPI CELLS 14 /uL (0-25.1); HYALINE CASTS 0 /uL (0-3.1); PH,URINE 5.5 (5.0-8.0); URINE APPEARANCE CLEAR; URINE BACTERIA 276 /uL (0-1359); URINE BILIRUBIN NEGATIVE (NEGATIVE); URINE COLOR YELLOW; URINE GLUCOSE (UA) NEGATIVE (NEGATIVE); URINE KETONE NEGATIVE (NEGATIVE); URINE LEUK ESTERASE TRACE (NEGATIVE); URINE NITRITE NEGATIVE (NEGATIVE); URINE PROTEIN NEGATIVE (NEGATIVE); URINE RBC 30 /uL (0-23.9); URINE WBC 15 /uL (0-25.8)
[2023-03-18 23:42] LABS: HCG,QUALITATIVE URINE Negative
[2023-03-18] MEDS ORDERED: MAG HYDROX/AL HYDROX/SIMETH -MYLANTA- ORAL SUSPENSION PO ONE (23:46)
[2023-03-18] MEDS ORDERED: SUCRALFATE 1 GM TABLET (FP) PO ONE (23:46)
[2023-03-18] MEDS ORDERED: ACETAMINOPHEN 1000 MG/100 ML BAG IVPB ONE (23:46)
[2023-03-18] MEDS ORDERED: FAMOTIDINE 20 MG/50 ML IVPB 20 MG/50 ML MG IVPB ONE (23:46)
[2023-03-19] MEDS ORDERED: ACETAMINOPHEN INJECTION 100 ML IVPB ONE (00:06)
[2023-03-19] MEDS ORDERED: MAG HYDROX/AL HYDROX/SIMETH 30 ML UNIT-DOSE CUP ONE (00:06)
[2023-03-19] MEDS ORDERED: SUCRALFATE 1 GM TABLET (FP) ONE (00:06)
[2023-03-19] MEDS ORDERED: FAMOTIDINE 20 MG/50 ML IVPB 20 MG/50 ML MG IVPB ONE (00:06)
[2023-03-19] MEDS ORDERED: CEFTRIAXONE 1 GM in DEXTROSE 5%-WATER - 100 ML IVPB ONE ×2 (00:07→03:05)
[2023-03-19] MEDS ORDERED: CEFTRIAXONE 1 GM/50 ML BAG ONE (00:24)
[2023-03-19 00:36] LABS: BASO % 0.3 % (0-2.0); EOS % 0.1 % (0-4.5); HEMATOCRIT 34.5 % (32.4-45.2); HEMOGLOBIN 11.8 GM/dL (10.7-15.3); LYMPH % 8.9 % (8-40); MCH 26.5 pg (25.7-33.7); MCHC 34.2 g/dl (32.0-36.0); MEAN CELL VOLUME 77.5 fl (80-96); MEAN PLT VOLUME 7.2 fl (7.5-11.1); MONO % 7.2 % (3.8-10.2); NEUT % 83.5 % (42.8-82.8); PLATELET COUNT 263 10^3/uL (134-434); RBC 4.45 M/mm3 (3.60-5.2); RDW 13.6 % (11.6-15.6); WHITE BLOOD COUNT 9.5 K/mm3 (4.0-10.0)
[2023-03-19 00:46] LABS: INR 1.17 (0.83-1.09); PROTHROMBIN TIME (PATIENT) 13.6 SEC (9.7-13.0)
[2023-03-19 00:49] LABS: ACTIVATED PTT 34.1 SECONDS (25.2-36.5)
[2023-03-19 00:54] LABS: POTASSIUM 4.1 mmol/L (3.5-5.1)
[2023-03-19 00:57] LABS: CALCIUM 8.4 mg/dL (8.5-10.1)
[2023-03-19 00:58] LABS: ALBUMIN 3.8 g/dl (3.4-5.0); BLOOD UREA NITROGEN 11.1 mg/dL (7-18)
[2023-03-19 01:01] LABS: CREATININE 0.7 mg/dL (0.55-1.3)
[2023-03-19 01:03] LABS: BILIRUBIN,TOTAL 0.6 mg/dL (0.2-1)
[2023-03-19 05:06] VITALS: BP 110/62; PULSE 76; RESP 18; TEMP 98.1
== END 2023-03-19 05:11 | disposition home or self-care (01) ==
LOC: JER 22:37
PROC: 3E033GC Introduction of Other Therapeutic Substance into Peripheral Vein, Percutaneous Approach (ICD-10-PCS; 2023-03-18)
PROC: 3E033NZ Introduction of Analgesics, Hypnotics, Sedatives into Peripheral Vein, Percutaneous Approach (ICD-10-PCS; 2023-03-18)
PROC: 3E03329 Introduction of Other Anti-infective into Peripheral Vein, Percutaneous Approach (ICD-10-PCS; principal; 2023-03-19)
DX: R10.84 Generalized abdominal pain (principal); N73.0 Acute parametritis and pelvic cellulitis; K50.00 Crohn's disease of small intestine without complications; Z20.822 Contact with and (suspected) exposure to COVID-19
CPT/HCPCS: 0241U-QW; 36415; 74177-TC; 76705-TC; 80053; 81003; 83690; 84703; 85025; 85610; 85730; 87086; 99285-25